=== PATIENT | male | born 1980 | race Hispanic/Latino ===

== ENCOUNTER 2020-01-22 02:34 | Emergency (ER) | payer SELFPAY, OTHER ==
[2020-01-22 03:14] LABS: Arterial Blood Carboxyhemoglob 0.9 % (0-1.5); Blood Gas Oxyhemoglobin 91.1 % (94-97); Blood O2 Saturation 92.9 % (92-98.5)
[2020-01-22] MEDS ORDERED: ACETAMINOPHEN 500 MG TAB ONE (03:26)
[2020-01-22 03:59] LABS: Absolute Lymphocytes (CBC) 0.6 K/uL (0.7-4.9); Basophils % 0.3 % (0-1.3); Hematocrit 37.1 % (39.6-49.0); MPV 7.6 fL (7.6-11.3); RBC Red Blood Cell Count 4.26 M/uL (4.33-5.43)
[2020-01-22 04:03] LABS: Protime INR 1.18
[2020-01-22 04:26] LABS: ALT/SGPT 34 U/L (12-78); AST/SGOT 52 U/L (15-37); Albumin 3.2 g/dL (3.4-5.0); Alkaline Phosphatase 50 U/L (45-117); Amylase 64 U/L (25-115); BUN Blood Urea Nitrogen 11 mg/dL (7-18); Bicarbonate 25 mmol/L (21-32); Bilirubin Direct < 0.1 mg/dL (0-0.2); Bilirubin Total 0.2 mg/dL (0.2-1.0); CKMB Creatine Kinase MB < 1.0 ng/mL (0.3-3.6); Creatine Phosphokinase 170 U/L (39-308); Glucose Level 111 mg/dL (74-106); Lipase 217 U/L (73-393); Potassium 4.1 mmol/L (3.5-5.1); Protein, Total 7.2 g/dL (6.4-8.2); Sodium Level 138 mmol/L (136-145); Troponin (Emerg Dept Use Only) < 0.02 ng/mL (0.0-0.045)
--- NOTE | 2020-01-22 06:25 | ER ---
Nurse's Notes [facility] Name: Calos Ortega Age: 40 yrs Sex: Male : 1980 Arrival Date: 01/22/2020 Time: 02:37 Bed 18 Private MD: Diagnosis: Viral pneumonia. Positive Covid - 19 Presentation: 01/21 02:38 Chief complaint: EMS states: [facility] PT WAS POS FOR COVID ON MONDAY. HAS HAD FEVER AND mt2 CHILLS. TOOK SEVERAL ASA FOR FEVER AND GENERALIZED PAIN. NOW HAS SOB AND GAS PAIN. PER EMS PT WITH TACHYCARDIA. DENJILLIANS CP. Coronavirus screen: Patient reports shortness of breath or difficulty breathing. Patient reports a measured and/or subjective temperature greater than 100.4F. Prior COVID test WAS TOLD IT WAS POSITIVE. Ebola Screen: No symptoms or risks identified at this time. Initial Sepsis Screen: Does the patient meet any 2 criteria? Temp <36.0*C (96.8*F)) or > 38.3*C (100.9*F). HR > 90 bpm. Does the patient have a suspected source of infection? If YES to both, name of provider notified: Duong Parra MD. Risk Assessment: Do you want to hurt yourself or someone else? Patient reports no desire to harm self or others. Onset of symptoms was January 21, 2020. 02:38 Method Of Arrival: EMS: [facility] mt2 02:38 Acuity: MAJOR 2 mt2 Triage Assessment: 02:42 General: Appears in no apparent distress. Pain: Complains of pain in GENERALIZED. EENT: mt2 No deficits noted. Neuro: No deficits noted. Respiratory: Reports shortness of breath cough that is. GI: Reports upper abdominal pain, bloating. : No deficits noted. Derm: No deficits noted. Musculoskeletal: No deficits noted. Historical: - Allergies: 02:42 No Known Allergies; mt2 - Immunization history:: Adult Immunizations up to date. - Social history:: Smoking status: Patient denies any tobacco usage or history of. Screenin:47 Abuse screen: Denies threats or abuse. Nutritional screening: No deficits noted. mt2 Tuberculosis screening: No symptoms or risk factors identified. Fall Risk None identified. Assessment: 03:25 Reassessment: No changes from previously documented assessment. Patient and/or family mt2 updated on plan of care and expected duration. Pain level reassessed. General: Appears uncomfortable, Behavior is cooperative. 04:00 Reassessment: Patient and/or family updated on plan of care and expected duration. Pain mt2 level reassessed. Patient denies pain at this time. Patient states symptoms have improved. General: Appears in no apparent distress. comfortable, Behavior is cooperative. 05:00 Reassessment: Patient and/or family updated on plan of care and expected duration. Pain mt2 level reassessed. Patient denies pain at this time. Patient states feeling better. Patient states symptoms have improved. General: Appears in no apparent distress. comfortable, Behavior is calm, cooperative. 06:37 Reassessment: Patient and/or family updated on plan of care and expected duration. Pain mt2 level reassessed. Patient denies pain at this time. Patient states feeling better. Patient states symptoms have improved. General: Appears in no apparent distress. comfortable, Behavior is calm, cooperative. Vital Signs: 02:38 BP 118 / 69; Pulse 130; Resp 19; Temp 102.4(O); Pulse Ox 98% on R/A; Pain 5/10; mt2 02:59 Weight 65.77 kg (R); lp1 03:25 BP 111 / 68; Pulse 128; Resp 17; Pulse Ox 98% ; Pain 5/10; mt2 04:12 Temp 101.4(O); mt2 04:12 BP 116 / 71; Pulse 114; Resp 19; Pulse Ox 97% on R/A; Pain 0/10; mt2 05:00 BP 117 / 62; Pulse 88; Resp 19; Temp 99.8(O); Pulse Ox 97% on R/A; Pain 0/10; mt2 06:37 BP 121 / 69; Pulse 83; Resp 16; Temp 98.7(O); Pulse Ox 97% on R/A; Pain 0/10; mt2 ED Course: 02:37 Patient arrived in ED. mt2 02:38 Shanta Arriaga, RN is Primary Nurse. mt2 02:41 Triage completed. mt2 02:42 Arm band placed on right wrist. EKG completed in triage. Results shown to MD. mt2 02:47 Patient has correct armband on for positive identification. Bed in low position. Call mt2 light in reach. Side rails up X 1. 03:00 Initial lab(s) drawn, by me, sent to lab. First set of blood cultures drawn by me. mt2 Inserted saline lock: 18 gauge in right antecubital area, using aseptic technique. Blood collected. 03:05 Second set of blood cultures drawn by me. Inserted saline lock: 18 gauge in left mt2 antecubital area, using aseptic technique. Blood collected. 03:17 Duong Parra MD is Attending Physician. pkl 03:19 Asprin Sent. mt2 03:19 Tylenol Level Sent. mt2 03:19 Amylase, Serum Sent. mt2 03:19 Basic Metabolic Panel Sent. mt2 03:20 Blood Culture Adult (2) Sent. mt2 03:20 Troponin (emerg Dept Use Only) Sent. mt2 03:20 Ptt, Activated Sent. mt2 03:31 Chest Single View XRAY In Process Unspecified. EDMS 04:35 CT Chest, Abdomen, Pelvis - W/Contrast In Process Unspecified. EDMS 04:44 Blood Culture Adult (2) Sent. mt2 04:45 Procalcitonin Sent. mt2 05:18 Urine Microscopic Only Sent. mt2 06:38 No provider procedures requiring assistance completed. IV discontinued, intact, mt2 bleeding controlled, No redness/swelling at site. Pressure dressing applied. Administered Medications: 03:00 Drug: NS 0.9% (30 ml/kg) 30 ml/kg Route: IV; Rate: bolus; Site: left antecubital; mt2 03:40 Follow up: Response: No adverse reaction; IV Status: Completed infusion mt2 03:22 Drug: Tylenol 1000 mg Route: PO; mt2 04:15 Follow up: Response: No adverse reaction; Temperature is decreased mt2 Outcome: 06:25 Discharge ordered by . pkcecilio 06:38 Discharged to home ambulatory. mt2 06:38 Condition: improved 06:38 Discharge instructions given to patient, Instructed on discharge instructions, follow up and referral plans. medication usage, Demonstrated understanding of instructions, follow-up care, medications, Prescriptions given X 2. 06:51 Patient left the ED. mt2 Signatures: Dispatcher [employer] EDMS Duong Parra MD MD pkl Pena, Laura RN RN lp1 Shanta Arriaga RN RN mt2
--- NOTE | 2020-01-22 06:26 | EDPHYS ---
Physician Documentation [facility] Name: Calos Ortega Age: 40 yrs Sex: Male : 1980 Arrival Date: 01/22/2020 Time: 02:37 Bed 18 Private MD: ED Physician Duong Parra HPI: 01/21 03:19 This 40 yrs old Male presents to ER via EMS with complaints of Shortness Of pkl Breath, Covid +. 03:19 The patient has shortness of breath at rest. Onset: The symptoms/episode began/occurred pkl today. Associated signs and symptoms: Pertinent positives: fever, abdominal pain. Patient had fever and chills 1 week ago. Had Covid - 19 swab test done last Monday ( 01/19/20 ) Was told he is positive for Covid - 19 yesterday. Historical: - Allergies: 02:42 No Known Allergies; mt2 - Immunization history:: Adult Immunizations up to date. - Social history:: Smoking status: Patient denies any tobacco usage or history of. ROS: 03:19 Eyes: Negative for injury, pain, redness, and discharge, ENT: Negative for injury, pkl pain, and discharge, Neck: Negative for injury, pain, and swelling, Cardiovascular: Negative for chest pain, palpitations, and edema. 03:19 Respiratory: Positive for shortness of breath. 03:19 Abdomen/GI: Positive for abdominal pain, of the right upper quadrant and left upper quadrant. 03:19 Back: Negative for pain at rest. 03:19 : Negative for urinary symptoms. 03:19 MS/extremity: Negative for acute changes. 03:19 Skin: Negative for rash. 03:19 Neuro: Negative for altered mental status. Exam: 03:19 Head/Face: Normocephalic, atraumatic. Eyes: Pupils equal round and reactive to light, pkl extra-ocular motions intact. Lids and lashes normal. Conjunctiva and sclera are non-icteric and not injected. Cornea within normal limits. Periorbital areas with no swelling, redness, or edema. ENT: Nares patent. No nasal discharge, no septal abnormalities noted. Tympanic membranes are normal and external auditory canals are clear. Oropharynx with no redness, swelling, or masses, exudates, or evidence of obstruction, uvula midline. Mucous membranes moist. Neck: Trachea midline, no thyromegaly or masses palpated, and no cervical lymphadenopathy. Supple, full range of motion without nuchal rigidity, or vertebral point tenderness. No Meningismus. Chest/axilla: Normal chest wall appearance and motion. Nontender with no deformity. No lesions are appreciated. Cardiovascular: Regular rate and rhythm with a normal S1 and S2. No gallops, murmurs, or rubs. Normal PMI, no JVD. No pulse deficits. Respiratory: Lungs have equal breath sounds bilaterally, clear to auscultation and percussion. No rales, rhonchi or wheezes noted. No increased work of breathing, no retractions or nasal flaring. Abdomen/GI: Soft, non-tender, with normal bowel sounds. No distension or tympany. No guarding or rebound. No evidence of tenderness throughout. Back: No spinal tenderness. No costovertebral tenderness. Full range of motion. Skin: Warm, dry with normal turgor. Normal color with no rashes, no lesions, and no evidence of cellulitis. MS/ Extremity: Pulses equal, no cyanosis. Neurovascular intact. Full, normal range of motion. Neuro: Awake and alert, GCS 15, oriented to person, place, time, and situation. Cranial nerves II-XII grossly intact. Motor strength 5/5 in all extremities. Sensory grossly intact. Cerebellar exam normal. Normal gait. Vital Signs: 02:38 BP 118 / 69; Pulse 130; Resp 19; Temp 102.4(O); Pulse Ox 98% on R/A; Pain 5/10; mt2 02:59 Weight 65.77 kg (R); lp1 03:25 BP 111 / 68; Pulse 128; Resp 17; Pulse Ox 98% ; Pain 5/10; mt2 04:12 Temp 101.4(O); mt2 04:12 BP 116 / 71; Pulse 114; Resp 19; Pulse Ox 97% on R/A; Pain 0/10; mt2 05:00 BP 117 / 62; Pulse 88; Resp 19; Temp 99.8(O); Pulse Ox 97% on R/A; Pain 0/10; mt2 06:37 BP 121 / 69; Pulse 83; Resp 16; Temp 98.7(O); Pulse Ox 97% on R/A; Pain 0/10; mt2 MDM: 03:17 Patient medically screened. pkl 05:13 Data reviewed: vital signs, nurses notes, lab test result(s), EKG, radiologic studies, pkl CT scan, plain films. ED course: Talked to Dr. Angulo ( will discuss patient with Dr. Arthur if patient need to be admitted ). 06:15 ED course: Patient evaluated by Dr. Angulo. Patient not in any distress. Vital signs pkl stable. Discussed lab and imaging studies with patient. Advised to quarantine at home. Must be symptoms free for 3 days and 2 negative Covid - 19 swab tests 24 hours apart before he can return to work. To return if symptoms are worse. Patient understood instructions. 01/21 02:48 Order name: ABG; Complete Time: 03:27 ri01/21 02:48 Order name: Amylase, Serum; Complete Time: 04:40 01/21 02:48 Order name: Basic Metabolic Panel; Complete Time: 04:40 01/21 02:48 Order name: Blood Culture Adult (2) 01/21 02:48 Order name: CBC with Diff; Complete Time: 04:27 01/21 02:48 Order name: Ckmb; Complete Time: 04:40 01/21 02:48 Order name: CPK; Complete Time: 04:40 01/21 02:48 Order name: Lactate; Complete Time: 04:27 01/21 02:48 Order name: LFT's; Complete Time: 04:40 01/21 02:48 Order name: Lipase; Complete Time: 04:40 ri01/21 02:48 Order name: Procalcitonin 01/21 02:48 Order name: Protime (+inr); Complete Time: 04:27 01/21 02:48 Order name: Ptt, Activated; Complete Time: 04:27 ri01/21 02:48 Order name: Troponin (emerg Dept Use Only); Complete Time: 04:40 01/21 02:48 Order name: Urine Microscopic Only 01/21 02:48 Order name: Chest Single View XRAY 01/21 02:48 Order name: Cardiac monitoring; Complete Time: 03:21 01/21 02:48 Order name: EKG - Nurse/Tech; Complete Time: 03:20 ri2 01/21 02:48 Order name: IV Saline Lock - Large Bore; Complete Time: 03:20 mt2 01/21 02:48 Order name: Labs collected and sent; Complete Time: 03:20 ri2 01/21 02:48 Order name: O2 Per Protocol; Complete Time: 03:20 ri2 01/21 02:48 Order name: O2 Sat Monitoring; Complete Time: 03:21 mt2 01/21 02:48 Order name: Tylenol Level; Complete Time: 04:40 ri2 01/21 02:49 Order name: Asprin; Complete Time: 04:27 lp1 01/21 03:28 Order name: CT Chest, Abdomen, Pelvis - W/Contrast pkl 01/21 04:11 Order name: CREATININE WHOLE BLOOD; Complete Time: 04:27 EDMS 01/21 05:31 Order name: Urine Dipstick--Ancillary (enter results) [facility] 01/21 02:48 Order name: Urine Dipstick-Ancillary (obtain specimen); Complete Time: 05:18 mt2 Administered Medications: 03:00 Drug: NS 0.9% (30 ml/kg) 30 ml/kg Route: IV; Rate: bolus; Site: left antecubital; mt2 03:40 Follow up: Response: No adverse reaction; IV Status: Completed infusion mt2 03:22 Drug: Tylenol 1000 mg Route: PO; mt2 04:15 Follow up: Response: No adverse reaction; Temperature is decreased mt2 Disposition: 01/22/20 06:25 Discharged to Home. Impression: Viral pneumonia. Positive Covid - 19. - Condition is Stable. - Prescriptions for Prednisone 20 mg Oral Tablet - take 1 tablet by ORAL route once daily for 5 days; 5 tablet. Zithromax Z- Eric 250 mg Oral Tablet - take 1 tablet by ORAL route as directed for 5 days Day 1 - take two (2) tablets one time. Day 2, 3, 4 , 5 take one (1) tablet once daily.; 6 tablet. - Medication Reconciliation Form, Thank You Letter, Antibiotic Education, Prescription Opioid Use form. - Follow up: Private Physician; When: 2 - 3 days; Reason: Re-evaluation by your physician. - Problem is new. - Symptoms have improved. Signatures: Dispatcher MedHoDuong Melgar MD MD pkl Shanta Arriaga, RN RN mt2 Corrections: (The following items were deleted from the chart) 06:51 06:25 01/22/2020 06:25 Discharged to Home. Impression: Viral pneumonia. Positive Covid mt2 - 19. Condition is Stable. Forms are Medication Reconciliation Form, Thank You Letter, Antibiotic Education, Prescription Opioid Use. Follow up: Private Physician; When: 2 - 3 days; Reason: Re-evaluation by your physician. Problem is new. Symptoms have improved. pkl
[2020-01-22 06:27] LABS: Urine Blood NEGATIVE (NEG); Urine Glucose NEGATIVE (NEG); Urine Protein 1+ (NEG)
[2020-01-22 06:28] LABS: Urine Amorphous Sediment 1+ /HPF (NONE SEEN); Urine Bacteria NONE SEEN /HPF (NONE SEEN); Urine Culture Reflex Order NOT NEEDED; Urine RBC NONE SEEN /HPF (NONE SEEN)
--- NOTE | 2020-01-22 07:17 | P.CNS ---
Date of Consult: 01/22/20 Patient seen and evaluated. He presented to the ED with a complaint of abdominal pain. He was also complaining shortness of breath and cough. Patient tested positive for COVID [address] chest report bilateral ground-glass opacities. CT abdomen and pelvis are unremarkable. Patient not in respiratory distress, resting comfortably at this time and denying any shortness of breath when I saw him in the ED. His oxygen saturation was 97% on room air, respiratory rate 70, T-max of 102. Stable blood pressure. Benefits of hospitalization is minimal at this point. Recommend Discharge to home. Patient has been informed to return to the ED for worse symptoms to include shortness of breath at rest or with minimal exertion. He can be discharged with a short course oral dexamethasone therapy and Zithromax.
--- NOTE | 2020-01-22 08:25 | RAD REPORT ---
EXAM DESCRIPTION: RAD - Chest Single View - 01/22/2020 3:31 am CLINICAL HISTORY: COUGH Chest pain. COMPARISON: No comparisons FINDINGS: Portable technique limits examination quality. The lungs are underinflated with mild interstitial bilateral pulmonary opacities likely representing interstitial pneumonitis. The heart is normal in size. No displaced fractures.
--- NOTE | 2020-01-22 12:31 | EKG ---
Test Date: 2020-01-22 Test Time: 02:54:24 Head Sawyer: GABRIELA MEASUREMENT RESULTS: Intervals: Rate: 124 MI: QRSD: 76 QT: 288 QTc: 413 [place]: P: 51 MI: QRS: 123 T: 21 INTERPRETIVE STATEMENTS: sinus tach Abnormal ECG No previous ECG available for comparison Electronically Signed On 01-22-20 12:31:06 CDT by Marvin Dodge
--- NOTE | 2020-01-22 13:46 | RAD REPORT ---
EXAM DESCRIPTION: CT of the chest, abdomen, and pelvis with contrast CLINICAL HISTORY: Sob, abd. pain COMPARISON: None Available. TECHNIQUE: CT of the chest, abdomen and pelvis performed following IV administration of iodinated co ntrast. FINDINGS: Chest: Thyroid: No abnormalities of the visualized thyroid. Great Vessels: Great vessels have normal anatomic configuration. Thoracic Aorta: No abnormalities of the thoracic aorta identified. Pulmonary arteries: No central pulmonary emboli. Heart: No cardiomegaly, significant pericardial effusion, or coronary artery atherosclerosis Lymph Nodes: No enlarged mediastinal lymph nodes identified. Esophagus: No abnormalities of the esophagus identified Other: No additional findings. Lungs: Patchy peripheral groundglass and airspace opacities with a basilar predominance. Pleura: No pleural effusion or pneumothorax. Trachea/Airways: No abnormalities of the visualized trachea or airways. Abdomen: Liver: The liver has normal size and density. No intrahepatic mass or biliary dilatation. Gallbladder: No calcified gallstones. Spleen, Pancreas, and Adrenal Glands: The spleen, pancreas, and adrenal glands are unremarkable. Kidneys: The kidneys have normal size and contour without evidence of solid mass or hydronephrosis. Small right renal cyst. Vasculature: The aorta and IVC have normal caliber and position. The portal vein is patent. The pro ximal visceral and renal arteries are patent. Stomach: The stomach and duodenum have normal course. Other: No free intraperitoneal air. No free fluid or lymphadenopathy. Pelvis: Bladder: Urinary bladder is unremarkable. Bowel: No dilated loops of large or small bowel. Appendix: None identified. Pelvis: Prostate is not enlarged. Bones: Bilateral L5 pars defects with grade 1 spondylolisthesis of L5 over S1. IMPRESSION: 1. Patchy peripheral groundglass and airspace opacities with basilar predominance. Commo nly reported imaging features of viral pneumonia are present. Other processes such as influenza pneum onia and organizing pneumonia, as can be seen with drug toxicity and connective tissue disease, can c ause similar imaging pattern. PneTyp 2. No acute abnormality identified in the abdomen or pelvis. This exam was performed according to our departmental dose-optimization program, which includes autom ated exposure control, adjustment of the mA and/or kV according to patient size and/or use of iterati ve reconstruction technique. Electronically signed by: Renny Ugarte 01/22/2020 4:52 AM CDT Due to temporary technical issues with the PACS/Fluency reporting system, reports are being signed by the in house radiologist without review as a courtesy to ensure prompt reporting. The interpreting r adiologist is fully responsible for the content of the report.
[2020-01-22 18:36] VITALS: O2SAT 97
[2020-01-22 18:42] VITALS: BP 121/69; TEMP 98.7
== END 2020-01-22 06:51 | disposition home or self-care (01) ==
LOC: ER 02:34
DX: U07.1 COVID-19 (principal); J12.9 Viral pneumonia, unspecified
CPT/HCPCS: 36415; 71045; 71260; 74177; 80048; 80076; 80329; 81003; 81015; 82150; 82550; 82553; 82565; 82805; 83605; 83690; 84145; 84484; 85025; 85610; 85730; 87040; 93005; 96365; 99284; Q9967